=== PATIENT | male | born 1970 | race Caucasian/White ===

== ENCOUNTER → 2023-10-22 06:29 | Day surgery (SDC) | payer BC, SELFPAY | LOC: GI 06:29 | PROVIDERS: ATTENDING PHYSICIAN Surgery | DX: Z12.11 Encounter for screening for malignant neoplasm of colon (principal); K57.30 Diverticulosis of large intestine without perforation or abscess without bleeding; D12.5 Benign neoplasm of sigmoid colon | CPT/HCPCS: 45385; 88305 ==

== ENCOUNTER 2023-11-13 06:03 | Day surgery (SDC) | payer BC, SELFPAY ==
--- NOTE | 2023-11-11 11:38 | CM ---
Patient is scheduled for a laparoscopic appendectomy on 11/13/23. Spoke with patient prior to surgery via telephone to complete case management assessment and assess for discharge planning needs. Patient reports that he lives alone in a two story
home. There are three steps to enter and a flight of steps to the second floor. He currently functions independently. He has no DME and has never had VN services. He has prescription drug coverage and uses [facility] [place].
[facility]
Discussed discharge plans. Patient plans to return home at discharge. He states that his girlfriend will be staying with him when he goes home. He has no discharge planning concerns at this time. Discussed possible need for VN services and patient
does not feel these services will be needed.
[2023-11-13] VITALS (9 sets, daily range): BP systolic 96–123; BP diastolic 62–79; BMI 32.7
[2023-11-13] MEDS: TYLENOL 1000 MG PO (06:55)
[2023-11-13] MEDS: NORMOSOL-R 1000 IV (07:08)
== END 2023-11-13 10:55 | disposition home or self-care (01) ==
LOC: SDS 06:03
PROVIDERS: ATTENDING PHYSICIAN Surgery
DX: K35.33 Acute appendicitis with perforation, localized peritonitis, and gangrene, with abscess (principal)
CPT/HCPCS: 44970; 88304; J1335